=== PATIENT | female | born 1950 | race Caucasian/White ===

== ENCOUNTER 2016-10-16 15:02 | Emergency (ER) | payer MEDICARE, MEDICAID ==
[~2016-10-16] VITALS: Ht 167.6 cm; Wt 84.1 kg
[2016-10-16] MEDS ORDERED: LOPE2 PO (15:19)
[2016-10-16] MEDS ORDERED: PARO10TA89 PO (15:20)
[2016-10-16] MEDS ORDERED: BUSP5TAB20 PO (15:20)
[2016-10-16] MEDS ORDERED: RISP.5 PO (15:20)
[2016-10-16] MEDS ORDERED: PERTUSS(ACELL),DIPH,TET VAC/PF 0.5 ML VIAL IM ONE (16:00)
[2016-10-16] MEDS ORDERED: IBUPROFEN 800 MG TABLET PO ONE (16:00)
[2016-10-16 16:21] VITALS: BP 132/78
== END 2016-10-16 17:21 | disposition home or self-care (01) ==
LOC: EMS 15:04
DX: S39.012A Strain of muscle, fascia and tendon of lower back, initial encounter (principal); S80.01XA Contusion of right knee, initial encounter; Z88.0 Allergy status to penicillin; Z88.1 Allergy status to other antibiotic agents; Z88.5 Allergy status to narcotic agent; W18.39XA Other fall on same level, initial encounter; Y93.89 Activity, other specified; Y92.89 Other specified places as the place of occurrence of the external cause; Y99.8 Other external cause status
CPT/HCPCS: 90471; 90715; 99283

== ENCOUNTER 2017-07-27 13:29 | Emergency (ER) | payer MEDICARE, MEDICAID ==
[~2017-07-27] VITALS: Ht 165.1 cm; Wt 90.9 kg
[~2017-07-27 13:29] MED LIST: BUSP5TAB20 PO; LOPE2 PO; PARO10TA89 PO; RISP.5 PO
[2017-07-27] MEDS ORDERED: OMEP10 PO (14:24)
[2017-07-27] MEDS ORDERED: HYDR28OI10 TP (14:24)
[2017-07-27] MEDS ORDERED: CLOP75 PO (14:24)
[2017-07-27] MEDS ORDERED: ATOR10TA84 PO (14:24)
[2017-07-27] MEDS ORDERED: BENA5TAB26 PO (14:24)
[2017-07-27] MEDS ORDERED: LOSA25TA21 PO (14:24)
[2017-07-27] MEDS ORDERED: FURO20 PO (14:24)
[2017-07-27] MEDS ORDERED: OXYB5 PO (14:24)
[2017-07-27 14:44] LABS: BASOPHILS % (AUTO) 0.4 % (0.0-2.0); EOSINOPHILS % (AUTO) 2.1 % (1.0-6.0); HEMATOCRIT 38.4 % (36-46); LYMPHOCYTES # (AUTO) 2.2 K/uL (1.0-4.8); LYMPHOCYTES % (AUTO) 31.1 % (22.0-44.0); MEAN CORPUSCULAR HEMOGLOBIN 27.8 pg (26.0-34.0); MEAN CORPUSCULAR HGB CONC 33.9 G/dL (31.0-37.0); MEAN CORPUSCULAR VOLUME 82 fL (80-100); MONOCYTES # (AUTO) 0.5 K/uL (0.1-1.0); MONOCYTES % (AUTO) 6.7 % (2.0-9.0); NEUTROPHILS # (AUTO) 4.2 K/uL (1.8-7.7); NEUTROPHILS % (AUTO) 59.7 % (40.0-70.0); PLATELET COUNT (AUTO) 231 K/uL (150-450); RED BLOOD CELL COUNT(AUTO) 4.67 MIL/uL (4.00-5.20); RED CELL DISTRIBUTION WIDTH 13.7 % (11.5-14.5)
[2017-07-27 14:54] LABS: CREATININE 1.07 mg/dL (0.60-1.30); POTASSIUM 4.3 mmol/L (3.5-5.1)
[2017-07-27 15:00] LABS: ALBUMIN 3.5 g/dL (3.4-5.0); BILIRUBIN,TOTAL 0.4 mg/dL (0.1-1.0); TOTAL PROTEIN, SERUM 6.7 g/dL (6.4-8.2)
[2017-07-27 16:31] VITALS: BP 110/63
== END 2017-07-27 16:31 | disposition home or self-care (01) ==
LOC: EMS 13:31
DX: R19.7 Diarrhea, unspecified (principal); Z88.0 Allergy status to penicillin; Z88.1 Allergy status to other antibiotic agents; Z88.8 Allergy status to other drugs, medicaments and biological substances
CPT/HCPCS: 99284